=== PATIENT | female | born 1930 | race African-American/Black ===

== ENCOUNTER 2017-04-14 20:18 | Emergency (ER) | payer MEDICARE ==
[2014-10-25 14:40] VITALS: BMI 27.5
[~2017-04-14 20:18] MED LIST: AMITIZA24 MCG; ARICEPT10 MG PO; CIPRO500 MG PO; ELIQUIS2.5 MG PO; FLAGYL 500500 MG/100 PO; FLAGYL500 MG PO; MACROBID100 MG PO; MEGACE40 MG PO; MELATONIN 10 M1 EACH PO; PRILOSEC20 MG PO; PRINIVIL20 MG PO; TOPROL XL50 MG PO; XANAX0.25 MG PO; ZOCOR40 MG
== END 2017-04-14 23:00 | disposition left against medical advice (07) ==
LOC: D.ER 20:18
DX: R05 Cough (principal)